=== PATIENT | male | born 1985 | race African-American/Black ===

== ENCOUNTER 2023-09-27 00:05 | Emergency (ER) | payer MEDICAID ==
[~2023-09-27] VITALS: Ht 188 cm; Wt 150.0 kg
[2023-09-27 00:14] VITALS: O2SAT 99
[2023-09-27 02:21] VITALS: BP 138/85; PULSE 77; RESP 16; TEMP 98.5
== END 2023-09-27 02:24 | disposition home or self-care (01) ==
LOC: ER 00:05
DX: I10 Essential (primary) hypertension (principal)
CPT/HCPCS: 99281